=== PATIENT | male | born 1960 | race Caucasian/White ===

== ENCOUNTER 2019-05-12 07:24 | Day surgery (SDC) | payer OTHER, SELFPAY ==
[2019-04-09 07:40] VITALS: BMI 39.9
--- NOTE | 2019-04-13 10:49 | HP_ITS ---
Intake Vital Signs 04/09/19 Height 5 ft 9 in 04/09/19 Weight: 270 lb 04/09/19 Body Mass Index (BMI) 39.9 04/09/19 Blood Pressure 131/91 H 04/09/19 Blood Pressure Location Rt brachial 04/09/19 Respiratory Rate 18 Intake Visit Reasons: [facility]mbilical [facility]ia [facility] Office Supervisor Required: No Is patient in pain?: No Allergies No Known Allergies Allergy (Unverified 04/09/19 07:40) Medications lisinopril 20 mg tablet 20 mg PO DAILY 04/09/19 [History Confirmed 04/09/19] rosuvastatin 5 mg tablet 5 mg PO DIRECTED tab 04/09/19 [History Confirmed 04/09/19] PFSH Medical History High cholesterol (Acute) HTN (hypertension) (Chronic) Surgical History Bone spur of right foot (Acute) Family History Mother Breast cancer Diabetes Hypertension Kidney disease Social History (Updated 04/13/19 @ 10:50 by Martin Hsu MD) Smoking Status: Never smoker alcohol intake: never HPI HPI HPI: LOVELY WILLAMS, is a 58 M who presents to the office today for HPI HPI Surgical H&P: Yes HPI: LOVELY WILLAMS, is a 58 M who presents to the office today for Evaluation of a lump at his umbilicus and the need for a screening colonoscopy. Patient has had a lump at his umbilicus for the last 6 months. He has not noticed any pain he states that it has been gradually increasing in size.He has had no change in his bowel or bladder habits. Patient has never had a colonoscopy. ROS General General: No weight change, appetite, fatigue, colon cancer, breast cancer or weakness HEENT HEENT: No difficulty swallowing, eye injury, eye surgery, swollen glands or hoarseness Endo Endocrine: No thyroid disease, diabetes mellitus, thyroid cancer, Hair loss, heat intolerance or cold intolerance Skin Skin: No rash or changing moles Breast Breast: No left breast lump, right breast lump, nipple discharge, breast pain, abnormal mammogram, abnormal US or breast enlargement Musc Musculoskeletal: No back problems, arthritis, rheumatoid arthritis, gout or joint pain Cardio Cardiovascular: Yes high blood pressure; no murmur, pacemaker, heart disease, atrial fibrillation, heart attack, heart stent, palpitations, shortness of breat with exertion or chest pain Psych Psychiatric: No depression, anxiety or hearing voices Resp Respiratory: No shortness of breath, No sleep apnea, No cough, No COPD, No asthma, No emphysema, No wheezing Gastro Gastrointestinal: No abdominal pain, No nausea or vomiting, No diarrhea, No constipation, No blood in stool, No acid reflux, No hemorrhoids, No ulcers, No gallbladder problem, No black,tarry stools Huan Hematologic: No blood thinners, No blood disorders, No bleeding, No anemia, No blood clots Neuro Neurologic: No system reviewed and no additional complaints, except as docu, No as per HPI, No abnormal walking, No abnormal hearing, No abnormal movements, No abnormal speech, No behavioral changes, No burning sensations, No confusion, No seizure-like activity, No unsteadiness, No dizziness, No localized weakness, No frequent falls, No headache(s), No lack of coordination, No loss of vision, No memory loss, No numbness, No other visual disturbances, No radiating pain, No restless legs, No sensory deficit, No fainting, No tingling, No tremor(s), No weakness, No other Exam Const General: no acute distress, well developed, well hydrated Orientation: oriented to person, oriented to place, oriented to time [facility] Head: normocephalic, atraumatic Ears: external ears normal Mouth: moist mucous membranes Eyes Sclera: sclerae normal Pupils: normal by confrontation Neck Neck: no lymphadenopathy noted Neck mass: No Thyroid: thyroid normal, symmetrical Chest Chest palpation & inspection: normal inspection of the chest Breast Palpation: No nipple discharge Resp Effort & Inspection: normal respiratory effort Auscultation: clear to auscultation bilaterally Percussion: percussion normal Cardio Rate: regular rate Rhythm: regular rhythm Heart Sounds: no murmurs GI Palpation: soft, no hepatosplenomegaly, no masses, tender Rectal Exam: other Other: A small umbilical hernia is identified located in the superior aspect of the umbilicus. Rectal exam deferred. Extrem General: normal to inspection, no clubbing, cyanosis or edema Assessment & Plan Problems 1. Umbilical hernia without obstruction and without gangrene K42.9 2. Encounter for screening colonoscopy Z12.11 Plan My plan is to perform a Umbilical hernia repair with mesh. The planned surgical procedure was discussed extensively with the patient. The risks, benefits, anticipated outcomes and possible complication were mentioned. The patient understands that all hernia repair surgery has a chance of recurrence and/or chronic post-operative pain. My staff has also explained the procedure in understandable terms and the patient was given the option to take printed material concerning the planned procedure. The patient had the opportunity to ask questions concerning the planned procedure. The patient freely consents to the planned procedure. I have discussed the above with the patient. I have offered the patient colonoscopy for evaluation. I have explained the risks/benefits of the procedure and described the procedure. I have discussed the risks with the patient, including but not limited to: infection, bleeding, perforation of the GI tract requiring emergency surgery, inability to complete the procedure, injury to any internal organs, complications of anesthesia, etc. - the patient understands and agrees to proceed. I have answered all the patient's questions to the patient's satisfaction and the patient has no further questions. The patient has been given instructions for the colon cleansing preparation. Coding Level of Care Code Off vis,new,level 3 Diagnoses Umbilical hernia without obstruction and without gangrene K42.9 Encounter for screening colonoscopy Z12.11 04/13/19 1050 <Electronically signed by Martin olivas MD> Date _ Martin Hsu MD I have re-examined the patient. There are no clinical changes since date of exam.
[2019-05-12 07:40] VITALS: BP 139/87; PULSE 97; RESP 16; TEMP 36.6; O2SAT 100; BMI 39.6
[2019-05-12] MEDS: Lactated Ringers 1,000 ML 100 ML IV (07:49)
[2019-05-12 08:52] VITALS: BP 107/70; BP 139/87; PULSE 91; RESP 16; TEMP 36.7; O2SAT 97
[2019-05-12 08:55] VITALS: BP 112/82; BP 139/87; PULSE 83; RESP 16; O2SAT 95
--- NOTE | 2019-05-12 08:57 | OP.ENDO_ITS ---
05/12/2019 Lul Marshall Re : Colonoscopy procedure for Alejandro Cadet Dear Joanna This procedure was performed on Sunday, May 12, 2019. My impressions and recommendations are as follows: Impressions : - The examined portion of the ileum was normal. - The entire examined colon is normal. - No specimens collected. Recommendations : - Discharge patient to home. - Resume previous diet. - Continue present medications. - Repeat colonoscopy in 10 years for screening purposes. - Return to primary care physician (date not yet determined). My findings are described in the full procedure note, which is enclosed. If I can be of further assistance, please feel free to contact me at Doctor phone number(s): , Fax: [phone], Work: . Sincerely, MD Martin Murphy MD 05/12/2019 8:57:20 AM This report has been signed electronically.
[2019-05-12 09:00] VITALS: BP 117/76; BP 139/87; PULSE 80; RESP 16; O2SAT 96
[2019-05-12 09:04] VITALS: BP 124/77; BP 139/87; RESP 16; TEMP 36.7; O2SAT 97
[2019-05-12 09:23] VITALS: BP 139/87
== END 2019-05-12 09:23 | disposition home or self-care (01) ==
LOC: EN 07:25 → AC 07:26
PROVIDERS: Family Provider Family Medicine; PCP Family Medicine; Referring Provider Family Medicine; Visit Provider Surgery
PROC: 0DJD8ZZ Inspection of Lower Intestinal Tract, Via Natural or Artificial Opening Endoscopic (ICD-10-PCS; CPT 45378; principal; 2019-05-12 08:25)
DX: Z12.11 Encounter for screening for malignant neoplasm of colon (principal); K42.9 Umbilical hernia without obstruction or gangrene; I10 Essential (primary) hypertension; E78.00 Pure hypercholesterolemia, unspecified; Z79.899 Other long term (current) drug therapy
CPT/HCPCS: 45378; J7120